=== PATIENT | female | born 2000 | race African-American/Black ===

== ENCOUNTER 2019-01-08 15:11 | Emergency (ER) | payer BC ==
[2019-01-08 15:49] VITALS: BP 100/68
--- NOTE | 2019-01-08 16:16 | UC ---
Abdominal Pain Female HPI - HPI Summary HPI Summary: 18 y/o female with h/o "enlarged abdominal lymph node" that caused abdominal symptoms, loose stools, pain- last episode 3 years ago. Patient presents with abdominal pain, 01/04, with diarrhea the next day, pain was todd-umbilical but now RLQ, no urinary symptoms, no N/V, + decreased appetite. Patient does not know if this is same as her prior symptoms, has had work up for appendicitis in the past. no other PMH, no pSH - History of Current Complaint Chief Complaint: UCAbdominalPain Stated Complaint: DIARRHEA x4 DAYS Time Seen by Provider: 01/08/19 15:56 Hx Obtained From: Patient Hx Last Menstrual Period: No periods with bcp ?: No Onset/Duration: Sudden Onset, Lasting Days Severity Initially: Moderate Severity Currently: Moderate Pain Intensity: 7 Pain Scale Used: 0-10 Numeric Location: Discrete At: RLQ Radiates: No Allergies/Adverse Reactions: Allergies Allergy/AdvReac Type Severity Reaction Status Date / Time No Known Allergies Allergy Verified 01/08/19 15:41 Home Medications: Home Medications Bismuth Subsalicylate [Pepto-Bismol Max Strength] 525 mg PO Q4H PRN 01/08/19 [ History Confirmed 01/08/19] Norethindrone-E.estradiol-Iron [Taytulla 1-20 mg-Mcg(24)] 1 cap PO DAILY [History Confirmed 01/08/19] PMH/Surg Hx/FS Hx/Imm Hx Previously Healthy: Yes - Surgical History Surgical History: Yes Surgery Procedure, Year, and Place: breast reduction - Social History Alcohol Use: Occasionally Substance Use Type: None Smoking Status (MU): Never Smoked Tobacco Review of Systems All Other Systems Reviewed And Are Negative: Yes Constitutional: Positive: Negative Eyes: Positive: Negative Gastrointestinal: Positive: Abdominal Pain, Diarrhea. Negative: Vomiting, Nausea Is Patient Immunocompromised?: No Physical Exam - Summary Physical Exam Summary: neg psoas sign, + obturator sign Triage Information Reviewed: Yes Appearance: Well-Appearing, No Pain Distress, Well-Nourished Vital Signs: Initial Vital Signs Temp 97.3 F 01/08/19 15:44 Pulse 77 01/08/19 15:44 Resp 18 01/08/19 15:44 BP 100/68 01/08/19 15:44 Pulse Ox 100 01/08/19 15:44 Vital Signs Reviewed: Yes Eyes: Positive: Conjunctiva Clear Abdomen Description: Positive: No Organomegaly, Soft, Guarding - RLQ, umbilical. Negative: CVA Tenderness (R), CVA Tenderness (L), Distended, Pulsatile Mass, Splenomegaly Bowel Sounds: Positive: Present Musculoskeletal Exam: Normal Psychological Exam: Normal Skin Exam: Normal Abd Pain Female Course/Dx - Course Course Of Treatment: discussed with patient need for imaging due to + signs for appedicitis. Currently, only CT available for patient. Due to prior radiation, patient would prefer US modality. Sent to [facility] for more work up - Differential Dx/Diagnosis Differential Diagnosis: Appendicitis, Diverticulitis Provider Diagnosis: Abdominal pain Discharge - Sign-Out/Discharge Documenting (check all that apply): Patient Departure All imaging exams completed and their final reports reviewed: No Studies - Discharge Plan Condition: Good Disposition: HOME Patient Education Materials: Abdominal Pain (ED) Referrals: No Primary Care Phys,NOPCP [Primary Care Provider] - Additional Instructions: - Referred to [facility] for imaging to rule out appendicitis - do not eat anything until seen at the ER - Billing Disposition and Condition Condition: GOOD Disposition: Home
== END 2019-01-08 16:23 | disposition home or self-care (01) ==
LOC: UCCORT 15:11
DX: R10.31 Right lower quadrant pain (principal); R19.7 Diarrhea, unspecified
CPT/HCPCS: 99202; G0463